=== PATIENT | female | born 1980 | race Two or more races ===

== ENCOUNTER 2024-05-14 05:02 | Day surgery (SDC) | payer OTHER ==
[~2024-05-14] VITALS: Ht 157.5 cm; Wt 61.7 kg
[~2024-05-14 05:02] MED LIST: CLONAZEPAM2 M1 PO; FOLIC ACID0.8 M1 PO; GRALISE600 MG PO; LEXAPRO20 MG PO; MELOXICAM15 MG PO; ORENCIA125 MG/1 M; PERCOCET 7.5-31 EACH PO; SEROQUEL50 MG PO; TREXALL7.5 MG PO
[2024-05-14] MEDS ORDERED: BUPIVACAINE HCL/MPF 0.5% 30ML VIAL ONE (06:30)
[2024-05-14] MEDS ORDERED: CEFAZOLIN SODIUM 1,000 MG VIAL ONE (06:30)
[2024-05-14] MEDS ORDERED: BUPIVACAINE HCL 30 ML VIAL IJ ONE (07:45)
[2024-05-14] MEDS ORDERED: CEFAZOLIN SODIUM 1,000 MG VIAL IV ONE (07:45)
[2024-05-14] MEDS ORDERED: SUGAMMADEX SODIUM 200 MG/2 ML VIAL IV ONE ×2 (09:23→09:45)
[2024-05-14] MEDS ORDERED: ONDANSETRON HCL 2 MG/ML VIAL IV ONE (10:15)
[2024-05-14] MEDS ORDERED: MORPHINE SULFATE 4 MG/ML VIAL IV ONE ×3 (10:15→12:25)
[2024-05-14] MEDS ORDERED: ONDANSETRON HCL 2 MG/ML VIAL ONE (11:09)
[2024-05-14 12:18] LABS: ABG PH 7.416 (7.35-7.45); ABG PO2 372.9 mmHg (80-100); ABG pCO2 42.2 mmHg (35-45); BASE EXCESS 1.7 mmol/l; BICARBONATE 26.5 mmol/l (23-25); Tco2 27.8 mmol/l
[2024-05-14 12:21] LABS: allen test SATISFACTORY; o2 40 %; puncture site RADIAL LEFT
== END 2024-05-14 14:40 | disposition home or self-care (01) ==
LOC: CIR.AMB 05:02 → EDSTATUS 08:13 → CIR.AMB 11:45 → SURG 11:52 → CIR.AMB 14:40
PROVIDERS: Anesthesiology; ATTEND Orthopaedic Surgery
DX: G57.32 Lesion of lateral popliteal nerve, left lower limb (principal); M79.662 Pain in left lower leg; M17.12 Unilateral primary osteoarthritis, left knee; I95.9 Hypotension, unspecified; J45.909 Unspecified asthma, uncomplicated; E16.2 Hypoglycemia, unspecified; F41.8 Other specified anxiety disorders; Z88.6 Allergy status to analgesic agent; G57.82 Other specified mononeuropathies of left lower limb